=== PATIENT | female | born 1995 | race Caucasian/White ===

== ENCOUNTER 2017-08-12 13:40 | Observation (INO) | payer OTHER ==
[~2017-08-12] VITALS: Ht 157.5 cm; Wt 54.5 kg
[~2017-08-12 13:40] MED LIST: LORTAB 5/500 501 TAB PO; MEDROL 4MG. DOSE4 MG PO; NOMEDS *; NUVARING1 ICR VG
[2017-08-12 14:43] LABS: HEMOGLOBIN 13.8 g/dL (12.2-16.2); LYMPH # 2.3 K/mm3 (0.7-4.5); LYMPH % 25.3 % (10-50.0)
--- OUTSIDE RECORDS SUMMARY | 2017-08-12 15:16 | External Medical Summary Rpt | CCD ---
Author Author MATT Address Unknown Phone Purpose Continuity of Care Document - 08-12-2017 through 2016
--- OUTSIDE RECORDS SUMMARY | 2017-08-12 15:17 | External Medical Summary Rpt | CCD ---
Demographics Preferred Language Russian Marital Status Unknown Jehovah'S Witness Affiliation Unknown Race Unknown Ethnic Group Unknown Author Author , MATT GUTIERREZ Address Unknown Phone Immunization No patient found.
--- OUTSIDE RECORDS SUMMARY | 2017-08-12 15:17 | External Medical Summary Rpt ---
Author Author MATT Tyler, [employer] Organization [employer] Address Unknown Phone Unavailable Results CBC W Auto Differential panel in Blood Observa Value Referen Units Interpr Notes Date tion ce etation Range Basophils 0 - 0.2 K/MM3 Normal No Aug 12 informati 2016 2:09 [#/volume on in PM ] in source Blood by data Automated count Basophils 0.1 - 2.0 % Normal No Aug 12 / informati 2016 2:09 leukocyte on in PM s in source Blood by data Automated count Eosinophi 0.0 - 0.4 K/mm3 Normal No Aug 12 ls informati 2016 2:09 [#/volume on in PM ] in source Blood by data Automated count Eosinophi 0.1 - % Normal No Aug 12 ls/100 12.0 informati 2016 2:09 leukocyte on in PM s in source Blood by data Automated count Granulocy 1.8 - 7.8 K/mm3 Normal No Aug 12 lena informati 2016 2:09 [#/volume on in PM ] in source Blood by data Automated count Granulocy 37.0 - % Normal No Aug 12 lena/100 80.0 informati 2016 2:09 leukocyte on in PM s in source Blood by data Automated count Hematocri 37.0 - % Normal No Aug 12 t [Volume 47.0 ati 2016 2:09 on in PM Fraction] source of Blood data Hemoglobi 12.2 - g/dL Normal No Aug 12 n 16.2 informati 2016 2:09 [Mass/vol on in PM ume] in source Blood data Lymphocyt 0.7 - 4.5 K/mm3 Normal No Aug 12 es informati 2016 2:09 [#/volume on in PM ] in source Unspecifi data ed specimen by Automated count Lymphocyt 10 - 50.0 % Normal No Aug 12 es informati 2016 2:09 [#/volume on in PM ] in source Unspecifi data ed specimen by Automated count Erythrocy 27 - 31.2 pg Normal No Aug 12 te mean informati 2016 2:09 corpuscul on in PM ar source hemoglobi data n [Entitic mass] Erythrocy 31.8 - g/dl Normal No Aug 12 te mean 35.4 informati 2016 2:09 corpuscul on in PM ar source hemoglobi data n concentra tion [Mass/vol ume] by Automated count Erythrocy 82.2 - fl Normal No Aug 12 te mean 97.8 informati 2016 2:09 corpuscul on in PM ar volume source [Entitic data volume] by Automated count Monocytes 0.1 - 1.0 K/mm3 Normal No Aug 12 inform2016 2:09 [#/volume on in PM ] in source Blood by data Automated count Monocytes 1.7 - 9.3 % Normal No Aug 12 /100 informati 2016 2:09 leukocyte on in PM s in source Blood by data Automated count Platelet 7.4 - fl Normal No Aug 12 mean 10.4 informati 2016 2:09 volume on in PM [Entitic source volume] data in Blood by Automated count Platelets 142 - 424 K/mm3 Normal No Aug 122016 2:09 [#/volume on in PM ] in source Blood data Erythrocy 4.2 - 5.4 M/mm3 Normal No Aug 12 lena informati 2016 2:09 [#/volume on in PM ] in source Amniotic data fluid Erythrocy 11.5 - % Normal No Aug 12 te 17.5 ati 2016 2:09 distribut on in PM ion width source [Entitic data volume] by Automated count Leukocyte 4.8 - K/MM3 Normal No Aug 12 s 10.8 ati 2016 2:09 [#/volume on in PM ] in source Blood data Choriogonadotropin.beta subunit [Units] in 24 hour Urine Observa Value Referen Units Interpr Notes Date tion ce etation Range Choriogon NEG No No No Aug 12 adotropin informati informati informati 2016 2:09 .beta on in on in on in PM subunit source source source [Units] data data data in 24 hour Urine
--- OUTSIDE RECORDS SUMMARY | 2017-08-12 15:17 | External Medical Summary Rpt | CCD ---
Demographics Preferred Language Serbian Marital Status Unknown Yarsani Affiliation Unknown Race Unknown Ethnic Group Unknown Author Author , MATT GUTIERREZ Address Unknown Phone Immunization No patient found.
--- OUTSIDE RECORDS SUMMARY | 2017-08-12 15:17 | External Medical Summary Rpt | CCD ---
Author Author [employer] Address Unknown Phone Unavailable Purpose Continuity of Care Document - through 2016
--- NOTE | 2017-08-12 15:55 | RADIOLOGY REPORT PS360 ---
LUMBAR PUNCTURE HISTORY: Fever with headache. Need for CSF analysis FEVER,HEADACHE, NECK PAIN ORDERING PHYSICIAN: Humberto Peacock MD PATIENT AGE: 21 years COMPARISON: None TECHNIQUE: Following obtaining informed consent under local anesthesia with 1% lidocaine and under fluoroscopic guidance a 20-gauge spinal needle was inserted into the L4-L5 interspace. Approximately 12 cc of clear CSF was obtained and sent to laboratory for analysis. The patient tolerated the procedure well without evidence of immediate complication IMPRESSION: Successful fluoroscopy guided lumbar puncture without complications
[2017-08-12 16:09] VITALS: BP 121/74
[2017-08-12] MEDS ORDERED: ADDERALL XR10 MG PO (16:15)
[2017-08-12] MEDS ORDERED: RISPERIDONE0.5 MG PO (16:16)
[2017-08-12] MEDS ORDERED: AUGMENTIN 875-1 EACH PO (16:17)
[2017-08-12] MEDS ORDERED: SINGULAIR10 MG PO (16:17)
[2017-08-12] MEDS ORDERED: MINOCYCLINE 10100 MG PO (16:18)
[2017-08-12 16:28] VITALS: BP 121/74
--- NOTE | 2017-08-12 17:52 | RADIOLOGY REPORT PS360 ---
CHEST(2 VIEWS-NOT PORTABLE) HISTORY: Fever of unknown origin fever ORDERING PHYSICIAN: Humberto Peacock MD PATIENT AGE: 21 years COMPARISON: 11-05-14 FINDINGS: The cardiomediastinal silhouette and pulmonary vascularity are within normal limits. The lungs are clear without infiltrates, suspicious nodules, or pleural effusions. No acute bony abnormalities. IMPRESSION: Negative chest, no acute finding
[2017-08-12 19:52] VITALS: BP 93/55
[2017-08-12 21:15] VITALS: BP 93/55
[2017-08-13 03:54] VITALS: BP 91/59
--- NOTE | 2017-08-13 07:26 | PHARMACY CLINIC NOTE ---
Patient Demographics Patient Demographics Admission date: 08/12/17 Date: 08/13/17 Time: 0725 Allergies Coded Allergies: codeine (Intermediate, I-HIVES 09/24/16) promethazine (Intermediate, S-DIFF. BREATHING 09/24/16) levofloxacin (09/24/16) tuberculin,PPD,multi-puncture (09/24/16) HEIGHT- FT: 5 IN: 2.00 K.545 VTE General Information Labs: Laboratory Tests 08/12 1409 Hematology Hgb (12.2 - 16.2 g/dL) 13.8 Hct (37.0 - 47.0 %) 40.6 Plt Count (142 - 424 K/mm3) 219 Disclaimer The following section includes nursing documentation that has been pulled in for pharmacy review. Patient's VTE score: 1 Patient's VTE Risk: VERY LOW RISK Clinical trial participant? No VTE prophylaxis [id number] VTE prophylaxis ordered? Yes Type of prophylaxis/treatment: BRIGIDA at 0725
--- NOTE | 2017-08-13 08:02 | ACUTE CARE PROGRESS NOTE (QUA) ---
Progress Notes Subjective Date 08/13/17 Time 0755 Note doing better Patient/family reports: feeling better Nursing reports: pain Objective Findings Last VS-Temp:98.7 B/P:91/59 Pulse:84 Resp:16 SaO2:100 ROOM AIR Last weight lbs:120 oz:4 K.545 Method:Bed Scales Exam General appearance: alert, active Eyes: PERRLA ENT: dry mucous membranes Neck: no JVD Cardiovascular: regular rate & rhythm Respiratory: no respiratory distress ABD: soft Genitourinary: no hematuria Extremities: moves all Musculoskeletal: equal muscle strength Skin: dry Neuro: alert, bank examiner II-XII nml as tested, no meningeal findings Reviewed: allergies, medications, vital signs, lab results Assessment/Plan Problem List 1. Febrile illness, acute 2. Mononucleosis 3. History of lumbar puncture Patient condition Stable Plan: initiate discharge plan This inpt stay is expected to cross 2 MNs from start of care Yes Comments: will have pt continue abx and check spinal culture and use toradol for pain at 0801
--- NOTE | 2017-08-13 08:02 | ACUTE CARE PROGRESS NOTE (QUA) ---
Progress Notes Subjective Date 08/13/17 Time 0755 Note doing better Patient/family reports: feeling better Nursing reports: pain Objective Findings Last VS-Temp:98.7 B/P:91/59 Pulse:84 Resp:16 SaO2:100 ROOM AIR Last weight lbs:120 oz:4 K.545 Method:Bed Scales Exam General appearance: alert, active Eyes: PERRLA ENT: dry mucous membranes Neck: no JVD Cardiovascular: regular rate & rhythm Respiratory: no respiratory distress ABD: soft Genitourinary: no hematuria Extremities: moves all Musculoskeletal: equal muscle strength Skin: dry Neuro: alert, executive personal assistant II-XII nml as tested, no meningeal findings Reviewed: allergies, medications, vital signs, lab results Assessment/Plan Problem List 1. Febrile illness, acute 2. Mononucleosis 3. History of lumbar puncture Patient condition Stable Plan: initiate discharge plan This inpt stay is expected to cross 2 MNs from start of care Yes Comments: will have pt continue abx and check spinal culture and use toradol for pain at 0801
[2017-08-13] MEDS ORDERED: TORADOL10 MG PO (08:03)
--- NOTE | 2017-08-13 08:09 | DISCHARGE SUMMARY STANDARD ---
Demographics Admit date: 08/12/17 Discharge date: 08/13/17 History of present illness History of present illness this wf was seen in pcp office with sore throat and fever and rx with augumentin for pos strep - she sl improved but has persistant fever and dev yo and neck pain with malaise - no cough or rash - she was seen by pcp and admitted for possible meningitis and acute febrile illness- Hospital Course Hospital Course: pt had lp per rad -see his note- pt with ivf and abx with stable lab with pos mono but has hx of mono- she had no fever and felt better except pain at lp site with no neuro sx -she will be d/c to complete abx and fluids and see pcp for follow up and spinal fluid culture- she was given toradol for back pain Discharge diagnoses Problem List 1. Febrile illness, acute 2. Mononucleosis 3. History of lumbar puncture Medications Medications: Discharge meds are as noted. Follow up Follow up in office in: 7 DAYS with: LAVERNE MEDINA Comment: will see as op and recheck if any problems at 0808
[2017-08-13 08:18] VITALS: BP 91/59
[2017-08-13 12:00] LABS: CSF APPEARANCE CLOUDY
[2017-08-13 12:01] LABS: CSF POLY 4 %
[2017-08-15 16:37] LABS: Epstein-Barr DNA Quant, PCR Negative (Negative)
[2017-08-19 13:29] LABS: STREPTOCOCCUS ANTIGEN NEGATIVE
[2017-08-19 13:31] LABS: GROUP B ANTIGEN DECTECTION NEGATIVE; N. MENINGITIDIS AG GROUP A NEGATIVE
[2017-08-19 13:35] LABS: H. INFLUNZAE ANTIGEN DECTECTIO NEGATIVE
== END 2017-08-13 08:28 | disposition home or self-care (01) ==
LOC: LAB 13:40 → COP 13:40 → 2ND 15:14 → COP 15:14 → 2ND 16:02
PROVIDERS: Emergency Medicine; Physician Assistant
PROC: 00JU3ZZ Inspection of Spinal Canal, Percutaneous Approach (ICD-10-PCS; principal; 2017-08-12)
DX: R50.9 Fever, unspecified (principal); B27.90 Infectious mononucleosis, unspecified without complication
CPT/HCPCS: G0378